=== PATIENT | female | born 1975 | race Caucasian/White ===

== ENCOUNTER 2017-12-30 12:17 | Emergency (ER) | payer OTHER ==
[~2017-12-30] VITALS: Ht 167.6 cm; Wt 83.5 kg
[2017-12-30] MEDS ORDERED: HYDROCODONE-AP1 EAC6 PO ×2 (13:41→13:42)
[2017-12-30 13:59] VITALS: BP 129/80
== END 2017-12-30 13:50 | disposition home or self-care (01) ==
LOC: ER 12:17
DX: S52.511A Displaced fracture of right radial styloid process, initial encounter for closed fracture (principal); S52.611A Displaced fracture of right ulna styloid process, initial encounter for closed fracture; Z88.1 Allergy status to other antibiotic agents; W01.0XXA Fall on same level from slipping, tripping and stumbling without subsequent striking against object, initial encounter; Y93.89 Activity, other specified; Y92.89 Other specified places as the place of occurrence of the external cause; Y99.8 Other external cause status